=== PATIENT | male | born 1985 | race Caucasian/White ===

== ENCOUNTER → 2020-04-09 | Outpatient (CLI) | payer SELFPAY | LOC: LAB FS 13:53 | PROVIDERS: ATTEND Emergency Medicine | DX: Z20.828 Contact with and (suspected) exposure to other viral communicable diseases (principal) | CPT/HCPCS: 87635 ==

== ENCOUNTER 2022-01-14 19:12 | Emergency (ER) | payer SELFPAY ==
[~2022-01-14] VITALS: Ht 170 cm; Wt 103.0 kg
[2022-01-14 19:20] VITALS: BP 153/103
[2022-01-14] MEDS ORDERED: CLIN-144 PO ×2 (19:54→19:59)
--- NOTE | 2022-01-14 19:54 | ED Integumentary General ---
General Chief Complaint: Skin/Wound Problems Stated Complaint: L SHOULDER PAIN/KNOT Nursing Triage Note: pt presents with abscess to area where are and chest meet. reports the area "popped up" this weekend Source: patient Exam Limitations: no limitations History of Present Illness Date Seen by Provider: Jan 14, 2022 Time Seen by Provider: 21:20 Initial Comments Patient is 36-year-old male presents with abscess and cellulitis to left [place] region. Symptoms began 4 days ago. No fever chills nausea vomiting or sweats. No history of MRSA. No other symptoms or complaints. Timing/Duration: week Severity: mild Location: torso Possible Cause: other Modifying Factors: improves with other Associated Symptoms: other Allergies and Home Medications Allergies Coded Allergies: No Known Allergies (Verified Allergy, Unknown, 01/14/22) Patient Home Medication List Home Medication List Reviewed: Yes Review of Systems Review of Systems Constitutional: see HPI EENTM: see HPI Respiratory: see HPI Skin: see HPI, rash Past Pigidal-Eltpcu-Artmvg Hx Patient Social History Tobacco Use?: Yes Smokeless Tobacco Frequency: Current Everyday User Substance use?: No Alcohol Use?: Yes Alcohol type: Beer Alcohol Frequency: Daily Pt feels they are or have been: No Physical Exam Vital Signs Vital Signs - First Documented 01/14/22 19:20 Pulse 99 Resp 18 B/P (MAP) 153/103 (120) Pulse Ox 98 O2 Delivery Room Air Capillary Refill : General Appearance: WD/WN, no apparent distress Skin: other (2 x 3 cm superficial abscess with surrounding patch of cellulitis over left superior, lateral pectoral region adjacent to axilla.) Procedures/Interventions I&D : Blade Size: 11 I & D Procedure: betadine prep Progress Betadine prep, 2 mL of 1% lidocaine injected over point of greatest fluctuance, following which a #11 blade was used to make a stab incision over the apex of the abscess. Moderate amount of pus was drained from the wound. The wound was explored no additional pus or drainage was present. No packing was applied. First dose of antibiotics was provided in the ER. Progress/Results/Core Measures Results/Orders Vital Signs/I&O 01/14/22 19:20 Pulse 99 Resp 18 B/P (MAP) 153/103 (120) Pulse Ox 98 O2 Delivery Room Air Blood Pressure Mean: 120 Departure Communication (PCP) I&D of left chest wall abscess. Patient placed on antibiotics for treatment of overlying cellulitis Impression Primary Impression: Cutaneous abscess of chest wall Additional Impression: Cellulitis of chest wall Disposition: 01 HOME, SELF-CARE Condition: Stable Departure-Patient Inst. Decision time for Depature: 19:53 Referrals: NO,LOCAL PHYSICIAN (PCP/Family) Primary Care Physician Patient Instructions: Abscess Incision and Drainage ED Add. Discharge Instructions: Please keep surgical incision clean and dry. Fill antibiotics tomorrow and take as directed. Take ibuprofen as needed for pain. Follow-up with your PCP in 5 to 7 days for reevaluation. Return to the ED if new or worsening symptoms. All discharge instructions reviewed with patient and/or family. Voiced understanding. Scripts Clindamycin HCl (Clindamycin HCl) 300 Mg Capsule 300 MG PO QID, #40 CAP Prov: JONES CARRION DO 01/14/22 JONES CARRION DO Jan 14, 2022 19:54
[2022-01-14] MEDS ORDERED: CLINDAMYCIN 150 MG (CLEOCIN) CAP PO ONE (20:00)
== END 2022-01-14 20:00 | disposition home or self-care (01) ==
LOC: EDUNIT# 19:12 → ER FS 19:13
DX: L02.213 Cutaneous abscess of chest wall (principal); L03.313 Cellulitis of chest wall; F17.290 Nicotine dependence, other tobacco product, uncomplicated
CPT/HCPCS: 99283